=== PATIENT | male | born 1965 | race American Indian/Alaskan Native ===

== ENCOUNTER 2022-03-23 11:08 | Outpatient (CLI) | payer OTHER ==
--- NOTE | 2022-03-23 13:59 | XRay Report ---
CHEST 2 VIEWS INDICATION / CLINICAL INFORMATION: ASTHMA,CHRONIC HEART FAILURE,FATIGUE. COMPARISON: None available. FINDINGS: SUPPORT DEVICES: None. HEART / MEDIASTINUM: No significant abnormality. LUNGS / PLEURA: No significant pulmonary or pleural abnormality. No pneumothorax. ADDITIONAL FINDINGS: No significant additional findings. IMPRESSION: 1. No acute findings. Signer Name: Henok Russ MD Signed: 03/23/2022 1:54 PM Workstation Name: [id number]
== END 2022-03-23 11:09 | disposition home or self-care (01) ==
LOC: XRAY 11:08
PROVIDERS: ATTEND Internal Medicine
DX: J45.909 Unspecified asthma, uncomplicated (principal); I50.9 Heart failure, unspecified; R53.83 Other fatigue
CPT/HCPCS: 71046